=== PATIENT | male | born 1970 | race Two or more races ===

== ENCOUNTER 2024-10-29 13:48 | Emergency (ER) | payer OTHER ==
[~2024-10-29] VITALS: Ht 165.1 cm; Wt 74.8 kg
[2024-10-29 13:51] VITALS: TEMP 98.1
[2024-10-29] MEDS ORDERED: KETOROLAC TROMETHAMINE 15 MG/ML VIAL ONE (14:27)
[2024-10-29] MEDS ORDERED: INSULIN REGULAR, HUMAN 100 UNIT/ML 10 ML VIAL ONE (14:27)
[2024-10-29] MEDS: KETOROLAC TROMETHAMINE 15 MG/ML VIAL IV ONE (14:31)
[2024-10-29 14:39] LABS: BASOPHILS % (AUTO) 0.5 % (0.0-2.0); EOSINOPHILS # (AUTO) 0.1 K/uL (0.0-0.7); EOSINOPHILS % (AUTO) 1.7 % (0.0-6.0); HEMATOCRIT 43 % (39-51); HEMOGLOBIN 14.7 g/dL (13.5-17.5); LYMPHOCYTES # (AUTO) 1.2 K/uL (0.8-4.8); MEAN CORPUSCULAR HEMOGLOBIN 29 PG (26.0-33.0); MEAN CORPUSCULAR HGB CONC 34 g/dl (31.0-36.0); MEAN CORPUSCULAR VOLUME 85 fL (80-96); MONOCYTES # (AUTO) 0.4 K/uL (0.1-1.30); MONOCYTES % (AUTO) 8.2 % (2.0-12.0); NEUTROPHILS # (AUTO) 3.6 K/uL (1.8-8.9); NEUTROPHILS % (AUTO) 67.6 % (43.0-81.0); PLATELET COUNT (AUTO) 230 K/uL (150-450); RED BLOOD CELL COUNT(AUTO) 5.05 MIL/uL (4.5-6.0); RED CELL DISTRIBUTION WIDTH 12.7 % (11.5-15.0); WHITE BLOOD COUNT (AUTO) 5.4 K/uL (4.3-11.0)
[2024-10-29] MEDS: IV NS 0.9% 1,000 ML BAG IV ONE (14:44)
[2024-10-29 14:54] LABS: ALBUMIN 3.7 g/dL (3.4-5.0); BILIRUBIN,DIRECT 0.1 mg/dL (0.0-0.2); BILIRUBIN,TOTAL 0.5 mg/dL (0.2-1.0); CALCIUM, SERUM 9.3 mg/dL (8.5-10.1); CREATININE 0.8 mg/dL (0.6-1.3); POTASSIUM 4.2 mmol/L (3.5-5.1); TOTAL PROTEIN, SERUM 6.9 g/dL (6.4-8.2)
[2024-10-29] MEDS: INSULIN REGULAR, HUMAN 100 UNIT/ML 10 ML VIAL IV ONE (14:58)
[2024-10-29] MEDS ORDERED: TIZA4TAB5 PO (16:45)
[2024-10-29] MEDS ORDERED: METHOCARBAMOL (500MG) 500 MG TABLET ONE (16:50)
[2024-10-29] MEDS: METHOCARBAMOL (750MG) 750 MG TABLET PO STA (16:57)
[2024-10-29 17:21] VITALS: BP 134/73; O2SAT 99
== END 2024-10-29 17:20 | disposition home or self-care (01) ==
LOC: ER 14:11
DX: S93.402A Sprain of unspecified ligament of left ankle, initial encounter (principal); S90.511A Abrasion, right ankle, initial encounter; M54.50 Low back pain, unspecified; E11.65 Type 2 diabetes mellitus with hyperglycemia; Z88.0 Allergy status to penicillin; V49.49XA Driver injured in collision with other motor vehicles in traffic accident, initial encounter; Y93.89 Activity, other specified; Y92.488 Other paved roadways as the place of occurrence of the external cause; Y99.8 Other external cause status
CPT/HCPCS: 99284; 96374; 96361; 96375; 72110; 73610; 85025; 80048; 83690; 80076; 36415; 82962 ×2; J1885; J1815; J7030; A4223